=== PATIENT | female | born 1960 | race Caucasian/White ===

== ENCOUNTER → 2022-07-29 | Outpatient (CLI) | payer BC, OTHER | LOC: M LAB 09:55 | PROVIDERS: ATTEND Internal Medicine Gastroenterology | DX: K52.3 Indeterminate colitis (principal) ==

== ENCOUNTER → 2023-02-06 | Outpatient (CLI) | payer MEDICARE, OTHER, BC | LOC: M LAB 09:52 | PROVIDERS: ATTEND Internal Medicine Gastroenterology | DX: R19.7 Diarrhea, unspecified (principal) ==

== ENCOUNTER 2023-03-06 10:37 | Day surgery (SDC) | payer MEDICARE, BC, OTHER ==
[~2023-03-06] VITALS: Ht 160 cm; Wt 78.5 kg
[~2023-03-06 10:37] MED LIST: AMIT25TA19 PO; CITA10TA7 PO; GLYCOPYRROLATE INJ 0.2 MG/ML 2 ML VIAL As Ordered ONE; LIDOCAINE 2% 100MG/5ML SDV (FOR ANES.) As Ordered ONE; LOSA25TA13 PO; NS 1,000 ML IV ONE; POTA-298 PO; propofoL 200 MG/20 ML VIAL As Ordered ONE
[2023-03-06] MEDS ORDERED: propofoL 200 MG/20 ML VIAL As Ordered ONE (13:43)
[2023-03-06 14:20] VITALS: BP 122/58; O2SAT 98
== END 2023-03-06 14:27 | disposition home or self-care (01) ==
LOC: M OPP 10:37
PROVIDERS: ATTEND Internal Medicine Gastroenterology
DX: K64.1 Second degree hemorrhoids (principal); K57.30 Diverticulosis of large intestine without perforation or abscess without bleeding; R19.7 Diarrhea, unspecified; K44.9 Diaphragmatic hernia without obstruction or gangrene; K52.832 Lymphocytic colitis; K31.89 Other diseases of stomach and duodenum; Z79.1 Long term (current) use of non-steroidal anti-inflammatories (NSAID); Z79.811 Long term (current) use of aromatase inhibitors; Z79.83 Long term (current) use of bisphosphonates; Z79.899 Other long term (current) drug therapy; Z88.5 Allergy status to narcotic agent